=== PATIENT | female | born 1990 | race Caucasian/White ===

== ENCOUNTER → 2024-05-29 | Outpatient (CLI) | payer OTHER ==
--- NOTE | 2024-05-30 13:22 | MM ---
Reason for Exam: Screening (asymptomatic). Last screening mammogram was performed 10 month(s) ago. Patient History: Menarche at age 17. Currently using Hormonal Contraceptives, starting at age 30. Maternal grandmother had breast cancer under age 50. Paternal grandmother had breast cancer at or over age 50. Maternal aunt had breast cancer under age 50. Maternal cousin had breast cancer under age 50. Last menstrual period: 05/01/2024 Prior Study Comparison: 07/09/2020 Bilateral MG 3D screening mammo w/cad, [facility]. 07/20/2021 Bilateral MG 3D screening mammo w/cad, [facility]. 07/26/2022 Bilateral Screening Mammogram, [facility]. 08/05/2023 Bilateral Screening Mammogram, [facility]. Tissue Density: There are scattered areas of fibroglandular density. Findings: Analyzed By CAD. There is no suspicious group of microcalcifications or new suspicious mass in either breast. Overall Assessment: Negative, BI-RAD 1 Management: Screening Mammogram of both breasts in 1 year. . Patient should continue monthly self-breast exams. A clinical breast exam by your physician is recommended on an annual basis. This exam should not preclude additional follow-up of suspicious palpable abnormalities. Note on Leanne scores and lifetime risk: 1. A Leanne score greater than 3% is considered moderate risk. If this is the case, consider specialist referral to assess eligibility for a risk reducing agent. 2. If overall lifetime risk for the development of breast cancer is 20% or higher, the patient may qualify for future screening with alternating mammogram and breast MRI. [facility], , 05/30/2024 1:19 PM. Electronically signed and approved by: Lm Goldberg M.D.
== END | disposition home or self-care (01) ==
LOC: RADMAMWWP 09:19
PROVIDERS: ATTEND Family Medicine
DX: Z12.31 Encounter for screening mammogram for malignant neoplasm of breast (principal); Z80.3 Family history of malignant neoplasm of breast; R92.323 Mammographic fibroglandular density, bilateral breasts
CPT/HCPCS: 77063; 77067

== ENCOUNTER → 2024-08-23 | Outpatient (CLI) | payer OTHER ==
[2024-08-23 09:49] VITALS: BP 127/81; PULSE 81; RESP 17; TEMP 98.3
--- NOTE | 2024-08-23 10:00 | P.GSCN ---
History of Present Illness Consult date: 08/23/24 Reason for Consult: high risk breast cancer Requesting physician: Isis Bingham History of present illness: Cinda is a 34 year old seen in consultation for DR. Bingham regarding high risk for breast cancer. She had a bilateral mammogram on 05-29 which was personally interpreted and was BIRAD 1. She is interested in genetic counselling. She has not noted any lumps masses or nodules of concern in either breast. She has not noted any nipple discharge or skin changes. She is not complaining of any recent trauma or infection in the breast. She has never had any surgery on her breast. Her mother has renal cancer and genetic testing on her mother revealed a variant of uncertain significance nicotine: never smoker caffiene: 1 cup/day chocolate: three times a week BCP: 3 1/2 years stopped [address] Bingham reviewed 04-18-24 Family History: mother: renal cancer, VUS maternal grandmother: from breast cancer in her 40's maternal aunt: breast cancer maternal cousin: breast cancer paternal grandmother: from breast cancer's in her 50 paternal great aunt: breast cancer maternal uncle: leukemia mothers cousins: breast (2) and 1 uterine Hormonal History: menarche: 17 G0 periods regular; LMP: 3 weeks ago Surgical History: none Medical History: depression Social History: nicotine: none alcohol: 1-2/week wine drugs; none Review of Systems - Constitutional Denies fever, Denies weight loss - EENT Eyes: denies blurred vision Ears: bilateral: tinnitus, deny: decreased hearing Ears, nose, mouth and throat: Reports dysphagia - Breasts bilateral: as per HPI - Cardiovascular Denies chest pain, Denies shortness of breath - Respiratory Denies cough, Denies 7 - Gastrointestinal Gastrointestinal Comment(s): GERD, hemorrhoids - Genitourinary Genitourinary: Denies dysuria, Denies hematuria Menstruation: Reports period normal - Musculoskeletal Reports as per HPI - Integumentary Denies rash, Denies unusual bruising - Neurological Denies headaches, Denies syncope - Psychiatric Reports as per HPI, Reports anxiety, Reports depression - Endocrine Reports as per HPI - Hematologic/Lymphatic Denies easy bleeding, Denies easy bruising - Allergic/Immunologic Reports as per HPI Surgical - Exam - General no distress - Eyes normal ocular movement - Neck trachea midline - Respiratory normal respiratory effort, clear to auscultation - Cardiovascular Rhythm: regular Heart Sounds: normal: S1, S2 - Abdomen Abdomen: soft, non tender, no guarding, no rigid, no rebound - Integumentary normal turgor - Neurologic no disoriented, no combative - Musculoskeletal normal gait - Psychiatric oriented to time, oriented to person, oriented to place, speech is normal, memory intact Breast Exam: BRA: 40B Inspection: Bilateral grade 2 ptosis Palpation: Right breast: Multi positional exam no dominant masses or nodules of concern Right axilla: No adenopathy of concern Left breast: Multi positional exam no dominant masses or nodules of concern Left axilla: No adenopathy of concern Results Bilateral mammogram performed on 05-29-2024 personally reviewed and interpreted BI-RADS 1 Assessment and Plan Assessment: Impression: Strong family history of cancer/particularly breast cancer Fibrocystic breast changes Plan: Patient would like to have genetic testing performed Referral to genetic counselor Follow-up after this is done Close surveillance repeat mammogram at the age of 42 Monthly breast self-exam/patient will call us if she notes anything of concern Follow-up in 1 year for breast exam CC: Dr. Valery Goyal
== END ==
LOC: WWCWWP 08:43
PROVIDERS: ATTEND Surgery
DX: Z12.31 Encounter for screening mammogram for malignant neoplasm of breast (principal); N60.19 Diffuse cystic mastopathy of unspecified breast